=== PATIENT | female | born 1965 | race Hispanic/Latino ===

== ENCOUNTER 2018-03-28 23:33 | Emergency (ER) | payer SELFPAY ==
[~2018-03-28] VITALS: Ht 157.5 cm; Wt 76.2 kg
[2018-03-29] MEDS ORDERED: TETANUS/DIPHTHERIA TOX ADULT 0.5 ML SYR IM ONE
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
[2018-03-29] MEDS ORDERED: ACETAMINOPHEN 325 MG TAB PO ONE (01:15)
== END 2018-03-29 01:48 | disposition home or self-care (01) ==
LOC: ER 23:33
DX: S00.81XA Abrasion of other part of head, initial encounter (principal); Y04.8XXA Assault by other bodily force, initial encounter; Y92.008 Other place in unspecified non-institutional (private) residence as the place of occurrence of the external cause
CPT/HCPCS: 70450; 90714; 99283